=== PATIENT | female | born 2000 | race Caucasian/White ===

== ENCOUNTER 2024-11-20 12:34 | Emergency (ER) | payer OTHER, SELFPAY ==
[2024-11-20] VITALS (7 sets, daily range): BP systolic 113–145; BP diastolic 50–102; PULSE 110–135; RESP 16–38; TEMP 36.2–36.3; O2SAT 97–100; BMI 27.2
--- NOTE | 2024-11-20 13:17 | EKG12_ITS ---
Test Reason : PALPS Blood Pressure : */* mmHG Vent. Rate : 136 BPM Atrial Rate : 136 BPM P-R Int : 130 ms QRS Dur : 74 ms QT Int : 284 ms P-R-T Axes : 72 79 27 degrees QTcB Int : 427 ms Sinus tachycardia Otherwise normal ECG Confirmed by Cesar Simon ([id number]), editorial assistant LINDA COLÓN ([id number]) on 11/21/2024 1:24:44 PM Referred By: DANYA/ROXI Confirmed By: Cesar Simon
--- NOTE | 2024-11-20 13:19 | EX.ED.DYSGE1 ---
HPI History of Present Illness Chief Complaint: Palpitations Informant: patient Onset/Context/Timing Onset: Today Context: Sudden Onset Timing: Intermittent and Lasts (Approximately 5 minutes) Quality: Fracture Location: Chest Worsened by: Standing Relieved by: Sitting Narrative Narrative: Patient presents with palpitations that began today while she was at work. Patient states she has had a recent sore throat and left ear pain. Patient states that she stood up while she was at work and felt like her heart was racing. Patient states it felt like she was having some pressure in her chest. Patient states it got better when she sat down. Patient states this lasted approximately 5 minutes. Patient denies any shortness of breath or cough. Patient admits to some nausea but denies any vomiting. Patient denies any diaphoresis. Patient denies any neck or back pain. Patient states she has a history of POTS which was recently diagnosed. [facility] Medical History (Updated 11/20/24 @ 16:[address] Saw Rincon DO) POTS (postural orthostatic tachycardia syndrome) Allergy/AdvReac Type Severity Reaction Status Date / Time No Known Allergies Allergy Verified 11/20/24 12:35 Surgical History no surgical history no surgical history Social History Smoking Status: Never smoker ROS ROS ED Constitutional Constitutional ED: Denies chills or fever(s) Eyes Eyes: Denies blurry vision or change in vision ENT ENT ED: Reports ear pain left, rhinorrhea and sore throat Cardiovascular Cardiovascular: Reports chest pain and palpitations Respiratory/Chest Respiratory/Chest: Denies cough or dyspnea Gastrointestinal Gastrointestinal: Reports nausea; Denies vomiting Genitourinary Genitourinary ED: Denies dysuria or hematuria Musculoskeletal Musculoskeletal: Denies back pain or neck pain Integumentary Denies abscess or rash Neurologic Neurologic: Denies headache(s) or weakness Allergic/Immunologic Allergic/Immunologic ED: Denies mouth swelling or urticaria EXAM Physical Exam Const Vital Signs: 11/20/24 12:35 11/20/24 13:35 11/20/24 13:59 Temperature 97.2 F L Temperature Source Temporal Pulse Rate 135 H 117 H Pulse Rate [Lying] 122 H Pulse Rate [Sitting (for 1 minute prior to obtaining)] 130 H Pulse Rate [Standing (for 1 minute prior to obtaining)] 133 H Respiratory Rate 16 29 H Blood Pressure 145/91 H 113/51 L Blood Pressure [Lying] 126/96 H Blood Pressure [Sitting (for 1 minute prior to obtaining)] 144/91 H Blood Pressure [Standing (for 1 minute prior to obtaining)] 123/102 H Blood Pressure Mean 109 71 Blood Pressure Mean [Lying] 106 Blood Pressure Mean [Sitting (for 1 minute prior to obtaining)] 108 Blood Pressure Mean [Standing (for 1 minute prior to obtaining)] 109 Pulse Ox 99 99 Oxygen Delivery Method Room Air Room Air 11/20/24 14:00 11/20/24 14:00 11/20/24 15:14 Temperature Temperature Source Pulse Rate 118 H 112 H 110 H Pulse Rate [Lying] Pulse Rate [Sitting (for 1 minute prior to obtaining)] Pulse Rate [Standing (for 1 minute prior to obtaining)] Respiratory Rate 26 H 24 H 23 H Blood Pressure 120/84 H 114/50 L 136/80 H Blood Pressure [Lying] Blood Pressure [Sitting (for 1 minute prior to obtaining)] Blood Pressure [Standing (for 1 minute prior to obtaining)] Blood Pressure Mean 96 71 98 Blood Pressure Mean [Lying] Blood Pressure Mean [Sitting (for 1 minute prior to obtaining)] Blood Pressure Mean [Standing (for 1 minute prior to obtaining)] Pulse Ox 100 99 99 Oxygen Delivery Method Room Air Room Air Room Air 11/20/24 16:16 Temperature Temperature Source Pulse Rate 122 H Pulse Rate [Lying] Pulse Rate [Sitting (for 1 minute prior to obtaining)] Pulse Rate [Standing (for 1 minute prior to obtaining)] Respiratory Rate 38 H Blood Pressure 139/89 H Blood Pressure [Lying] Blood Pressure [Sitting (for 1 minute prior to obtaining)] Blood Pressure [Standing (for 1 minute prior to obtaining)] Blood Pressure Mean 105 Blood Pressure Mean [Lying] Blood Pressure Mean [Sitting (for 1 minute prior to obtaining)] Blood Pressure Mean [Standing (for 1 minute prior to obtaining)] Pulse Ox 100 Oxygen Delivery Method Room Air Positive well nourished and well developed General Appearance ED: well developed and NAD HEENT Reports moist mucous membranes Neck supple and no JVD Resp normal respiratory effort and clear to auscultation bilaterally Cardio regular rhythm Rate: tachycardic GI non-tender and non-distended Palpation: soft Neuro oriented x3, CN's II-XII intact bilaterally and no sensory deficits noted Sensorium / Orientation: alert Motor Exam: strength 5/5 throughout Psych mental status grossly normal MDM MDM MDM Narrative Medical decision making narrative: Differential diagnosis includes dehydration, electrolyte abnormality, anxiety, cardiac dysrhythmia, cardiac ischemia, and POTS. EKG will be obtained to assess for cardiac dysrhythmia and cardiac ischemia. Chest x-ray will be obtained to assess for pneumonia and pneumothorax. CBC will be obtained to assess for leukocytosis and anemia. Basic metabolic profile will be obtained to assess for electrolyte abnormality and renal function. High-sensitivity troponin will be obtained to assess for her cardiac ischemia. COVID-19, influenza, and RSV PCR will be obtained to assess for viral illness. Lab Data Attestation: I reviewed the patient's lab results. Lab results narrative: CBC was reviewed and was within normal limits. Basic metabolic profile was reviewed and was within normal limits. High-sensitivity troponin was reviewed and was less than 3. COVID-19 PCR was reviewed and was negative. Influenza PCR was reviewed and was negative for influenza A and influenza B. RSV PCR was reviewed and was negative. Labs: Laboratory Results - last 24 hr 11/20/24 12:59 WBC 8.0 RBC 5.21 Hgb 14.9 Hct 44.2 MCV 84.8 MCH 28.6 MCHC 33.7 RDW Std Deviation 39.7 RDW Coeff of Yari 12.9 Plt Count 250 MPV 9.6 Immature Gran % (Auto) 0.300 Neut % (Auto) 65.7 Lymph % (Auto) 27.9 [place] % (Auto) 5.0 Eos % (Auto) 0.8 Baso % (Auto) 0.3 Absolute Neuts (auto) 5.3 Absolute Lymphs (auto) 2.23 Nucleated RBC % 0 Sodium 138 Potassium 3.7 Chloride 108 H Carbon Dioxide 22.0 Anion Gap 8 BUN 7 Creatinine 0.70 Estim Creat Clear Calc 112.66 Est GFR (MDRD) Af Amer 132 Est GFR (MDRD) Non-Af 109 BUN/Creatinine Ratio 9.9 L Glucose 78 Calcium 9.4 Troponin I High Sens < 3 L Radiography Diagnostic Testing: Clinical Impression(s) from Imaging Studies Chest X-Ray 11/20/24 13:40 IMPRESSION: 1.6 cm nodular opacity within the left lower lobe, may reflect focal consolidation, recommend chest CT for further characterization, cannot exclude a pulmonary nodule. Electronically Signed: Kristi Diez MD at 14:03 EST , Chest CTA 11/20/24 15:47 IMPRESSION: Normal CTA chest examination, without a demonstrated pulmonary embolism or arterial dissection. Electronically Signed: Jayden Morales MD at 16:06 EST , PA and lateral chest x-ray was obtained. There are 2 views. On my independent interpretation, lung smith show a 1.6 cm nodular opacity within the left lower lobe that may reflect focal consolidation but cannot exclude a pulmonary nodule. There is normal cardiac silhouette. Bony thorax is normal. Radiologist also interpreted the x-ray and recommended further evaluation with CT scan. Because of the radiologist recommendation, CT of the chest was obtained. There is no evidence of pulmonary embolism or aortic dissection. There is no evidence of pulmonary nodule or infiltrate. This was interpreted by the radiologist and was also independently reviewed by myself. EKG Initial EKG: Attestation: I personally reviewed and interpreted this EKG as follows: Interpretation: No Acute Injury Pattern and Sinus Tachycardia (136) Comments: EKG was obtained. On my independent interpretation, it showed a sinus tachycardia with a rate of 136. AK interval, QRS interval, and QTc intervals were all normal. [place] was normal. There are no acute ST or T wave changes. Prior EKG tracings: not available for review Prior: No Prior Treatment and Re-Evaluation :: Patient was given IV fluids. Patient's heart rate improved. Orthostatic vital signs were obtained and were within normal limits. Patient was instructed to drink plenty of fluids. Patient was instructed to follow-up with her primary care physician in 5 to 7 days. Patient and family understood and was agreeable with the plan. All questions were answered. Discharge Plan Triage Chief Complaint: Palpitations ED Provider: Saw Rincon Dx/Rx/DC Orders Clinical Impression: Sinus tachycardia, POTS (postural orthostatic tachycardia syndrome) Instructions: ED Palpitations Primary Care Provider: Benson Batres Referrals: Benson Batres DO [Primary Care Provider] - 5-7 Days Print Language: Pashto Disposition Disposition: Home, Self Care
[2024-11-20 13:27] LABS: Absolute Lymphocyte Count 2.23 X10^3/uL (0.83-4.51); Absolute Neutrophil Count 5.3 X10^3/uL (2.0-7.7); Basophil# 0.02 X10^3/uL; Basophil% 0.3 % (0-1); Eosinophil# 0.06 X10^3/uL; Eosinophils% 0.8 % (0-5); Hematocrit 44.2 % (37-47); Hemoglobin 14.9 g/dL (12.0-15.0); Lymphocyte # 2.23 X10^3/ul (0.83-4.51); Lymphocyte % 27.9 % (19-41); Mean Corp Hgb Conc 33.7 g/dL (32-36); Mean Corpuscular Hgb 28.6 pg (27.0-32.0); Mean Corpuscular Volume 84.8 fL (81-99); Mean Platelet Vol. 9.6 fl (6.2-12.0); NRBC Flagged by Analyzer 0 % (0-5); Neutrophil # 5.25 X10^3/uL (2.7-7.7); Neutrophil % 65.7 % (47-70); Platelet Count 250 K/mm3 (150-450); RBC Distribution Width CV 12.9 % (11.6-14.6); RBC Distribution Width SD 39.7 fl (35.1-43.9); Red Blood Count 5.21 M/mm3 (4.2-5.4)
--- NOTE | 2024-11-20 13:40 | RAD_ITS ---
INDICATION: Palpitations EXAMINATION/TECHNIQUE: X-RAY - XR Chest 2 Views COMPARISON: No relevant prior comparison study available FINDINGS: LINES/DEVICES: None. LUNGS: There is a 1.6 cm nodular opacity projecting over the left lower lung. No pneumothorax. MEDIASTINUM AND CARDIOVASCULAR STRUCTURES: Cardiac silhouette not enlarged. Central airways and mediastinal contour are unremarkable. BONES AND SOFT TISSUES: Unremarkable. RAD/Chest PA and Lateral IMPRESSION: 1.6 cm nodular opacity within the left lower lobe, may reflect focal consolidation, recommend chest CT for further characterization, cannot exclude a pulmonary nodule. Electronically Signed: Kristi Diez MD at 14:03 EST ,
[2024-11-20 13:45] LABS: Anion Gap 8 (5-15); BUN 7 mg/dL (7-18); BUN/Creat Ratio 9.9 RATIO (10-20); Calcium,Total 9.4 mg/dL (8.5-10.1); Chloride 108 mmol/L (98-107); EST Glomerular Filtration Rate 109 mL/min (>60); Est Glom Filt Rate - Afr Amer 132 mL/min (>60); Estimated Creatinine Clearance 112.66 ml/min; Glucose 78 mg/dL (74-106); Potassium 3.7 mmol/L (3.5-5.1); Sodium Level 138 mmol/L (136-145); Troponin-I HS < 3 pg/mL (3.0-54.0)
[2024-11-20] MEDS: 0.9% Normal Saline (1000mL) 1,000 ML 1000 ML IV (14:15)
--- NOTE | 2024-11-20 15:47 | CT_ITS ---
STUDY: CTA CHEST REASON FOR EXAM: Female, 24 years old. Pulmonary nodule RADIATION DOSAGE (If Supplied By Facility): CTDIvol = ( 8.74 ) mGy, DLP = ( 250.05 ) mGycm TECHNIQUE: The examination was performed with the intravenous administration of IV 100mL Isovue-[id number]. Post-processing of the angiographic images was performed, with multiplanar reformation and 3D reconstruction. Individualized dose optimization techniques were used for this CT. COMPARISON: None. FINDINGS: Normal enhancement of the main pulmonary artery and right and left pulmonary arteries. Normal enhancement of the bilateral peripheral pulmonary arteries. There is no demonstrated pulmonary embolism. Normal thoracic aorta and visualized great vessels. There is no demonstrated aortic dissection. Normal heart and pericardium. Normal mediastinum. Normal hilar regions. Normal visualized trachea and bronchi. The lungs are well expanded. Normal pulmonary parenchyma. Normal pleura. Normal chest wall structures. Normal osseous structures. Normal visualized upper abdomen. CT/CTA Chest W/WO Contrast IMPRESSION: Normal CTA chest examination, without a demonstrated pulmonary embolism or arterial dissection. Electronically Signed: Jayden Morales MD at 16:06 EST ,
== END 2024-11-20 17:00 | disposition home or self-care (01) ==
PROVIDERS: Emergency Provider Emergency Medicine; PCP Student in an Organized Health Care Education/Training Program; Visit Provider Emergency Medicine
DX: G90.A Postural orthostatic tachycardia syndrome [POTS] (principal)
CPT/HCPCS: 71046; 71275; 80048; 84484; 85025; 87631; 93005; 96360; 96361; 99285; Q9967; A4216